=== PATIENT | female | born 1985 | race Caucasian/White ===

== ENCOUNTER 2016-06-24 05:00 | Inpatient (IN) | payer MEDICAID ==
[2016-06-24] MEDS ORDERED: Oxytocin 10 Units/1 ML SDV ONE (05:03)
[2016-06-24] MEDS ORDERED: Oxytocin 10 Units/1 ML SDV IM PRN (05:15)
[2016-06-24] MEDS ORDERED: Sodium Chloride 0.9% 10 ML Syringe FLUSH PRN (05:40)
[2016-06-24] MEDS ORDERED: Ibuprofen 600 MG Tab PO PRN (05:43)
[2016-06-24] MEDS ORDERED: Lanolin 100% Cream 40 GM Tube TOP PRN (05:43)
[2016-06-24] MEDS ORDERED: Acetaminophen 325 MG Tab PO PRN (05:43)
[2016-06-24] MEDS ORDERED: Acetaminophen/HYDROcodone 325-5 MG Tab PO PRN (05:43)
[2016-06-24] MEDS ORDERED: Docusate Sodium 100 MG Cap PO PRN (05:43)
--- NOTE | 2016-06-24 06:02 | PCM.LDHP ---
L&D History of Present Illness - General Date of Service: 06/24/16 Admit Problem/Dx: Patient Status Order with Admit Dx/Problem 06/24/16 05:03 Patient Status [ADT] Routine 06/24/16 05:04 Patient Status [ADT] Routine Admission Diagnosis/Problem Admission Diagnosis/Problem Source of Information: Patient History Limitations: Reports: No limitations - History of Present Illness Associated Symptoms: Reports: N - Related Data Allergies/Adverse Reactions: Allergies Allergy/AdvReac Type Severity Reaction Status Date / Time No Known Allergies Allergy Verified 08/27/13 07:46 H&P Review of Systems - Review of Systems: Review Of Systems: See Below General: Reports: no symptoms HEENT: Reports: no symptoms Pulmonary: Reports: No Symptoms Cardiovascular: Reports: no symptoms Gastrointestinal: Reports: No symptoms Genitourinary: Reports: no symptoms Musculoskeletal: Reports: no symptoms Skin: Reports: no symptoms Psychiatric: Reports: no symptoms Neurological: Reports: No Symptoms Hematologic/Lymphatic: Reports: no symptoms Immunologic: Reports: no symptoms L&D Exam - Exam Exam: See Below - OB Specific movement: active heart tones: present Presentation: Vertex - Exam General: alert, oriented HEENT: PERRLA, Conjunctiva clear, EACs clear, EOMI, Hearing intact, Mucosa moist & pink, Nares patent, Normal nasal septum, Posterior pharynx clear, Pupils equal, Pupils reactive, TMs clear Neck: supple, trachea midline Lungs: Clear to auscultation, Normal respiratory effort Cardiovascular: regular rate, regular rhythm Abdomen: normal bowel sounds, soft Rectal Exam: Normal exam, Normal rectal tone Genitourinary: Normal external exam Back Exam: normal inspection, full range of motion Extremities: normal inspection Skin: warm, dry, intact Neurological: cranial nerves intact, reflexes equal bilateral Psychiatric: alert, normal affect, normal mood - Patient Data Lab Results last 24 hrs: Laboratory Results - last 24 hr 06/24/16 Range/Units 05:15 WBC 6.2 (4.5-11.0) K/uL RBC 4.29 (3.30-5.50) M/uL Hgb 11.8 L (12.0-15.0) g/dL Hct 35.9 L (36.0-48.0) % MCV 84 (80-98) fL MCH 28 (27-31) pg MCHC 33 (32-36) % Plt Count 143 L (150-400) K/uL Neut % (Auto) 73 H (36-66) % Lymph % (Auto) 20 L (24-44) % [place] % (Auto) 6 (2-6) % Eos % (Auto) 1 L (2-4) % Baso % (Auto) 0 (0-1) % Result Diagrams: 06/24/16 05:15 - Problem List (1) Precipitous delivery SNOMED Code(s): 164076809 ICD Code: O62.3 - PRECIPITATE LABOR Status: Acute Current Visit: Yes (2) Intends to breastfeed SNOMED Code(s): 420157255 ICD Code: [id number] - Status: Acute Current Visit: Yes (3) Thick meconium stained amniotic fluid SNOMED Code(s): 262438218 ICD Code: P96.83 - MECONIUM STAINING Status: Acute Current Visit: Yes (4) Normal vaginal delivery SNOMED Code(s): 24718517 ICD Code: O80 - ENCOUNTER FOR FULL-TERM UNCOMPLICATED DELIVERY Status: Acute Current Visit: Yes (5) SNOMED Code(s): 16557058 ICD Code: Z33.1 - STATE, INCIDENTAL Status: Acute Current Visit : Yes Qualifiers: Weeks of gestation: 40 weeks Qualified Code(s): Z3A.40 - 40 weeks gestation of Problem List Initiated/Reviewed/Updated: Yes Orders Last 24hrs: Active Orders 24 hr Category Date Time Status Patient Status [ADT] Routine ADT 06/24/16 05:03 Active Patient Status [ADT] Routine ADT 06/24/16 05:04 Active Communication Order [RC] ASDIRECTED Care 06/24/16 05:40 Active Communication Order [RC] ROUTINE Care 06/24/16 05:43 Active Heart Tones [RC] PER UNIT ROUTINE Care 06/24/16 05:40 Active May Shower [RC] ASDIRECTED Care 06/24/16 05:43 Active Notify Provider Vital Signs [RC] PRN Care 06/24/16 05:03 Active Notify Provider [RC] PRN Care 06/24/16 05:40 Active Up ad Deborah [RC] ASDIRECTED Care 06/24/16 05:43 Active Vital Signs [RC] PER UNIT ROUTINE Care 06/24/16 05:40 Active Vital Signs [RC] PFP Care 06/24/16 05:43 Active Regular Diet [DIET] Diet 06/24/16 Breakfast Active CBC WITH AUTO DIFF [HEME] Routine Lab 06/25/16 06:00 Ordered Acetaminophen [Tylenol] Med 06/24/16 05:43 Ordered 650 mg PO Q4H PRN Acetaminophen/HYDROcodone [[place] 325-5 MG] Med 06/24/16 05:43 Ordered 1 - 2 tab PO Q4H PRN Docusate Sodium [Colace] Med 06/24/16 05:43 Ordered 100 mg PO BID PRN Ibuprofen [Motrin] Med 06/24/16 05:43 Ordered 600 mg PO Q6H PRN Lanolin [Lansinoh HPA] Med 06/24/16 05:43 Ordered 1 gm TOP ASDIRECTED PRN Oxytocin [Pitocin] Med 06/24/16 05:15 Ordered 10 unit IM ONETIME PRN Sodium Chloride 0.9% [Saline Flush] Med 06/24/16 05:40 Active 10 ml FLUSH ASDIRECTED PRN Assess Lochia [WOMSER] Per Unit Routine Oth 06/24/16 05:43 Ordered Assess Uterine Involution [WOMSER] Per Unit Routine Oth 06/24/16 05:43 Ordered Ice Therapy [OM.PC] Per Unit Routine Oth 06/24/16 05:44 Ordered Perineal Care [OM.PC] Per Unit Routine Oth 06/24/16 05:44 Ordered Saline Lock Insert [OM.PC] Routine Oth 06/24/16 05:40 Ordered Resuscitation Status Routine Resus Stat 06/24/16 05:43 Ordered Medication Orders Acetaminophen (Tylenol) 650 mg PO Q4H PRN PRN Reason: mild pain or fever Hydrocodone Bitart/Acetaminophen ([place] 325-5 Mg) 1 - 2 tab PO Q4H PRN PRN Reason: Pain (moderate 4-6) Docusate Sodium (Colace) 100 mg PO BID PRN PRN Reason: Constipation Emollient Ointment (Lansinoh Hpa) 1 gm TOP ASDIRECTED PRN PRN Reason: Sore Nipples Ibuprofen (Motrin) 600 mg PO Q6H PRN PRN Reason: mild pain or fever Oxytocin (Pitocin) 10 unit IM ONETIME PRN PRN Reason: excessive vaginal bleeding Sodium Chloride (Saline Flush) 10 ml FLUSH ASDIRECTED PRN PRN Reason: Keep Vein Open Assessment/Plan Comment:: 06/24/2016 31 yo began active labor around 0300. They began to drive in from [place] to the hospital when the baby began to come quickly. They phoned for an ambulance and delivered in the vehicle by cost clerk at [phone]. Network Support Manager state there was a nuchal cord times one loose and easy to reduce. Network Support Manager states infant cried spontaneously and was placed skin to skin with mother and cord was double clamped and cut by cost clerk. Once both were stable ambulance brought infant and mother into hospital. CNM greeted them at door.
--- NOTE | 2016-06-24 06:14 | PCM.DEL ---
L & D Note - General Info Date of Service: 06/24/16 Mother's Due Date: 06/23/16 - Delivery Note Labor: spontaneous Delivery Method: Spontaneous Vaginal Delivery Delivery Mode: Spontaneous Presentation: Vertex Nuchal cord: present (times one and reduced) Anesthesia Type: None Amniotic Fluid Description: Meconium stained Episiotomy Type: None Laceration: none Placenta: intact, spontaneous, meconium stained Cord: 3 vessels Resuscitation needed: No : bulb syringe, stimulated, warmed, blanket used, warmer used Second Stage Interventions: Reports: Other (see below) (precipitous) Delivery Comments (Free Text/Narrative):: 06/24/2016 31 yo began active labor around 0300, she states she SROM at 0400 then labor progressed quickly, she states fluid was brown in color. They began to drive in from [place] to the hospital when the baby began to come quickly. They phoned for an ambulance and delivered in the vehicle by accounts payable accountant at [phone] normal spontaneous vaginal delivery. Professor Of Sociology state there was a nuchal cord times one loose and easy to reduce. Professor Of Sociology states infant cried spontaneously and was placed skin to skin with mother and cord was double clamped and cut by accounts payable accountant. Infant bulb suctioned-APGARS 9/10/10, weight 7lbs 3oz, length-20inches, Once both were stable ambulance brought infant and mother into hospital. CNM greeted them at door. Patient then assisted on to the labor and delivery bed. Placenta spontaneously removed over an intact perineum, meconium standed. 3 vessel cord. Moderate sized blood clot after placenta. No lacerations noted of perineum, vagina, cervix, or rectum. EBL- 100. Labs- O positive, Hgb 11.8, Rubella Immune, RPR nonreactive, HIV negative, Hep B negative, Mother and infant now stable in labor and delivery room - General Info Date of Service: 06/24/16 Admission Dx/Problem (Free Text): Patient Status Order with Admit Dx/Problem 06/24/16 05:03 Patient Status [ADT] Routine 06/24/16 05:04 Patient Status [ADT] Routine Admission Diagnosis/Problem Admission Diagnosis/Problem Functional Status: Reports: pain controlled - Review of Systems General: Reports: No Symptoms HEENT: Reports: no symptoms Pulmonary: Reports: no symptoms Cardiovascular: Reports: No Symptoms Gastrointestinal: Reports: No symptoms Genitourinary: Reports: no symptoms Musculoskeletal: Reports: no symptoms Skin: Reports: no symptoms Neurological: Reports: No Symptoms Psychiatric: Reports: no symptoms - Patient Data Lab Results last 24 hrs: Laboratory Results - last 24 hr 06/24/16 Range/Units 05:15 WBC 6.2 (4.5-11.0) K/uL RBC 4.29 (3.30-5.50) M/uL Hgb 11.8 L (12.0-15.0) g/dL Hct 35.9 L (36.0-48.0) % MCV 84 (80-98) fL MCH 28 (27-31) pg MCHC 33 (32-36) % Plt Count 143 L (150-400) K/uL Neut % (Auto) 73 H (36-66) % Lymph % (Auto) 20 L (24-44) % [place] % (Auto) 6 (2-6) % Eos % (Auto) 1 L (2-4) % Baso % (Auto) 0 (0-1) % Med Orders - Current: Current Medications Acetaminophen (Tylenol) 650 mg PO Q4H PRN PRN Reason: mild pain or fever Hydrocodone Bitart/Acetaminophen ([place] 325-5 Mg) 1 - 2 tab PO Q4H PRN PRN Reason: Pain (moderate 4-6) Docusate Sodium (Colace) 100 mg PO BID PRN PRN Reason: Constipation Emollient Ointment (Lansinoh Hpa) 1 gm TOP ASDIRECTED PRN PRN Reason: Sore Nipples Ibuprofen (Motrin) 600 mg PO Q6H PRN PRN Reason: mild pain or fever Oxytocin (Pitocin) 10 unit IM ONETIME PRN PRN Reason: excessive vaginal bleeding Sodium Chloride (Saline Flush) 10 ml FLUSH ASDIRECTED PRN PRN Reason: Keep Vein Open - Exam General: alert, oriented HEENT: Pupils equal, Pupils reactive, EOMI, Mucous membr. moist/pink Neck: supple Lungs: Clear to auscultation, Normal respiratory effort Cardiovascular: Regular Rate, Regular Rhythm Abdomen: bowel sounds present, soft, no tenderness, no distension (Female) Exam: Normal external exam, Normal speculum exam, Normal bimanual exam, Enlarged uterus, Vaginal bleeding Back Exam: normal inspection, full range of motion Extremities: no edema Skin: warm, dry, intact Wound/Incisions: healing well Neurological: no new focal deficit Psy/Mental Status: alert, normal affect, normal mood - Problem List & Annotations (1) Precipitous delivery SNOMED Code(s): 886672921 Code(s): O62.3 - PRECIPITATE LABOR Status: Acute Current Visit: Yes (2) Intends to breastfeed SNOMED Code(s): 777876433 Code(s): GIQ9849 - Status: Acute Current Visit: Yes (3) Thick meconium stained amniotic fluid SNOMED Code(s): 051224013 Code(s): P96.83 - MECONIUM STAINING Status: Acute Current Visit: Yes (4) Normal vaginal delivery SNOMED Code(s): 66224876 Code(s): O80 - ENCOUNTER FOR FULL-TERM UNCOMPLICATED DELIVERY Status: Acute Current Visit: Yes (5) SNOMED Code(s): 11875415 Code(s): Z33.1 - STATE, INCIDENTAL Status: Acute Current Visit: Yes Qualifiers: Weeks of gestation: 40 weeks Qualified Code(s): Z3A.40 - 40 weeks gestation of - Problem List Review Problem List Initiated/Reviewed/Updated: Yes - My Orders Last 24 Hours: My Active Orders 06/24/16 05:03 Patient Status [ADT] Routine Notify Provider Vital Signs [RC] PRN 06/24/16 05:04 Patient Status [ADT] Routine 06/24/16 05:15 Oxytocin [Pitocin] 10 unit IM ONETIME PRN 06/24/16 05:40 Communication Order [RC] ASDIRECTED Heart Tones [RC] PER UNIT ROUTINE Notify Provider [RC] PRN Vital Signs [RC] PER UNIT ROUTINE Sodium Chloride 0.9% [Saline Flush] 10 ml FLUSH ASDIRECTED PRN Saline Lock Insert [OM.PC] Routine 06/24/16 05:43 Communication Order [RC] ROUTINE May Shower [RC] ASDIRECTED Up ad Deborah [RC] ASDIRECTED Vital Signs [RC] PFP Acetaminophen [Tylenol] 650 mg PO Q4H PRN Acetaminophen/HYDROcodone [[place] 325-5 MG] 1 - 2 tab PO Q4H PRN Docusate Sodium [Colace] 100 mg PO BID PRN Ibuprofen [Motrin] 600 mg PO Q6H PRN Lanolin [Lansinoh HPA] 1 gm TOP ASDIRECTED PRN Assess Lochia [WOMSER] Per Unit Routine Assess Uterine Involution [WOMSER] Per Unit Routine Resuscitation Status Routine 06/24/16 05:44 Ice Therapy [OM.PC] Per Unit Routine Perineal Care [OM.PC] Per Unit Routine 06/24/16 Breakfast Regular Diet [DIET] 06/25/16 06:00 CBC WITH AUTO DIFF [HEME] Routine - Assessment Assessment:: 06/24/2016 Precipitous Delivery Meconium stained fluid Delivery outside of hospital setting O positive, Rubella Immune, Hep B negative, HIV negative, Hgb 11.8 Fundus firm, moderate amount of bleeding Intact perineum - Plan Plan:: 06/24/2016 31 yo began active labor around 0300. They began to drive in from [place] to the hospital when the baby began to come quickly. They phoned for an ambulance and delivered in the vehicle by accounts payable accountant at [phone]. Professor Of Sociology state there was a nuchal cord times one loose and easy to reduce. Professor Of Sociology states infant cried spontaneously and was placed skin to skin with mother and cord was double clamped and cut by accounts payable accountant. Once both were stable ambulance brought infant and mother into hospital. CNM greeted them at door. Plan Routine Cares Support and encourage Monitor Fundus and bleeding Pain medication per patients request Plan for discharge in 24-48 hours
--- NOTE | 2016-06-25 08:24 | PCM.PNPP ---
- General Info Date of Service: 06/25/16 (PPD 1) Admission Dx/Problem (Free Text): Patient Status Order with Admit Dx/Problem 06/24/16 05:03 Patient Status [ADT] Routine 06/24/16 05:04 Patient Status [ADT] Routine Admission Diagnosis/Problem Admission Diagnosis/Problem Functional Status: Reports: pain controlled - Review of Systems General: Reports: No Symptoms HEENT: Reports: no symptoms Pulmonary: Reports: no symptoms Cardiovascular: Reports: No Symptoms Gastrointestinal: Reports: No symptoms Genitourinary: Reports: no symptoms Musculoskeletal: Reports: no symptoms Skin: Reports: no symptoms Neurological: Reports: No Symptoms Psychiatric: Reports: no symptoms - General Info Date of Service: 06/25/16 - Patient Data Vital Signs - most recent: Last Vital Signs Temp 98.8 F 06/25/16 03:00 Pulse 63 06/25/16 03:00 Resp 16 06/25/16 03:00 BP 102/66 06/25/16 03:00 Pulse Ox 98 06/25/16 03:00 Weight - most recent: 145 lb Lab Results - last 24 hrs: Laboratory Results - last 24 hr 06/25/16 Range/Units 04:45 WBC 6.7 (4.5-11.0) K/uL RBC 4.21 (3.30-5.50) M/uL Hgb 11.4 L (12.0-15.0) g/dL Hct 35.3 L (36.0-48.0) % MCV 84 (80-98) fL MCH 27 (27-31) pg MCHC 32 (32-36) % Plt Count 150 (150-400) K/uL Neut % (Auto) 64 (36-66) % Lymph % (Auto) 28 (24-44) % [place] % (Auto) 7 H (2-6) % Eos % (Auto) 2 (2-4) % Baso % (Auto) 0 (0-1) % Med Orders - Current: Current Medications Acetaminophen (Tylenol) 650 mg PO Q4H PRN PRN Reason: mild pain or fever Hydrocodone Bitart/Acetaminophen ([place] 325-5 Mg) 1 - 2 tab PO Q4H PRN PRN Reason: Pain (moderate 4-6) Docusate Sodium (Colace) 100 mg PO BID PRN PRN Reason: Constipation Emollient Ointment (Lansinoh Hpa) 1 gm TOP ASDIRECTED PRN PRN Reason: Sore Nipples Ibuprofen (Motrin) 600 mg PO Q6H PRN PRN Reason: mild pain or fever Oxytocin (Pitocin) 10 unit IM ONETIME PRN PRN Reason: excessive vaginal bleeding Last Admin: 06/24/16 05:25 Dose: 10 unit Sodium Chloride (Saline Flush) 10 ml FLUSH ASDIRECTED PRN PRN Reason: Keep Vein Open Discontinued Medications Oxytocin (Pitocin) Confirm Administered Dose 10 unit .ROUTE .STK-MED ONE Stop: 06/24/16 05:04 Last Admin: 06/24/16 12:33 Dose: Not Given - Interaction Infant Disposition, : in Room with Family Infant Interaction: Holding Infant Infant Feeding: Breastfed Infant; Nursed Well Support Person: - Recovery Exam Fundal Tone: Firm Fundal Level: At Umbilicus Fundal Placement: Midline Lochia Amount: Small Lochia Color: Rubra/Red Perineum Description: Intact, Minimal Bruising/Swelling Episiotomy/Laceration: None Bladder Status: Voiding Urinary Elimination: Voided - Exam General: alert, oriented HEENT: Pupils equal Neck: supple Lungs: Clear to auscultation, Normal respiratory effort Cardiovascular: Regular Rate, Regular Rhythm Abdomen: bowel sounds present, soft, no tenderness, no distension Extremities: no edema Skin: warm, dry, intact Wound/Incisions: healing well Neurological: no new focal deficit Psy/Mental Status: alert, normal affect, normal mood - Problem List & Annotations (1) Intends to breastfeed SNOMED Code(s): 643917045 Code(s): EWD2470 - Status: Acute Current Visit: Yes (2) Normal vaginal delivery SNOMED Code(s): 43059603 Code(s): O80 - ENCOUNTER FOR FULL-TERM UNCOMPLICATED DELIVERY Status: Acute Current Visit: Yes (3) Precipitous delivery SNOMED Code(s): 860259768 Code(s): O62.3 - PRECIPITATE LABOR Status: Acute Current Visit: Yes (4) SNOMED Code(s): 39877610 Code(s): Z33.1 - STATE, INCIDENTAL Status: Acute Current Visit: Yes Qualifiers: Weeks of gestation: 40 weeks Qualified Code(s): Z3A.40 - 40 weeks gestation of (5) Thick meconium stained amniotic fluid SNOMED Code(s): 765074929 Code(s): P96.83 - MECONIUM STAINING Status: Acute Current Visit: Yes - Problem List Review Problem List Initiated/Reviewed/Updated: Yes - Assessment Assessment:: 06/24/2016 Precipitous Delivery Meconium stained fluid Delivery outside of hospital setting O positive, Rubella Immune, Hep B negative, HIV negative, Hgb 11.8 Fundus firm, moderate amount of bleeding Intact perineum 06/25/16 Doing well, without problems Up and about HGB 11.4 Bleeding light, feels well Baby's ABO O pos - Plan Plan:: 06/24/2016 31 yo began active labor around 0300. They began to drive in from [place] to the hospital when the baby began to come quickly. They phoned for an ambulance and delivered in the vehicle by mussel opener at [phone]. Railroad Auditor state there was a nuchal cord times one loose and easy to reduce. Railroad Auditor states infant cried spontaneously and was placed skin to skin with mother and cord was double clamped and cut by mussel opener. Once both were stable ambulance brought and mother into hospital. CNM greeted them at door. Plan Routine Cares Support and encourage Monitor Fundus and bleeding Pain medication per patients request Plan for discharge in 24-48 hours 06/24/16 Home tomorrow Support Needs to sign refusal for PKU testing
--- NOTE | 2016-06-26 07:14 | PCM.PNPP ---
- General Info Date of Service: 06/26/16 (PPD 2) Admission Dx/Problem (Free Text): Patient Status Order with Admit Dx/Problem 06/24/16 05:03 Patient Status [ADT] Routine 06/24/16 05:04 Patient Status [ADT] Routine Admission Diagnosis/Problem Admission Diagnosis/Problem Functional Status: Reports: pain controlled - Review of Systems General: Reports: No Symptoms HEENT: Reports: no symptoms Pulmonary: Reports: no symptoms Cardiovascular: Reports: No Symptoms Gastrointestinal: Reports: No symptoms Genitourinary: Reports: no symptoms Musculoskeletal: Reports: no symptoms Skin: Reports: no symptoms Neurological: Reports: No Symptoms Psychiatric: Reports: no symptoms - General Info Date of Service: 06/26/16 - Patient Data Vital Signs - most recent: Last Vital Signs Temp 98.8 F 06/26/16 02:30 Pulse 73 06/26/16 02:30 Resp 16 06/26/16 02:30 BP 87/70 L 06/26/16 02:30 Pulse Ox 98 06/26/16 02:30 Weight - most recent: 145 lb Med Orders - Current: Current Medications Acetaminophen (Tylenol) 650 mg PO Q4H PRN PRN Reason: mild pain or fever Hydrocodone Bitart/Acetaminophen ([place] 325-5 Mg) 1 - 2 tab PO Q4H PRN PRN Reason: Pain (moderate 4-6) Docusate Sodium (Colace) 100 mg PO BID PRN PRN Reason: Constipation Emollient Ointment (Lansinoh Hpa) 1 gm TOP ASDIRECTED PRN PRN Reason: Sore Nipples Ibuprofen (Motrin) 600 mg PO Q6H PRN PRN Reason: mild pain or fever Oxytocin (Pitocin) 10 unit IM ONETIME PRN PRN Reason: excessive vaginal bleeding Last Admin: 06/24/16 05:25 Dose: 10 unit Sodium Chloride (Saline Flush) 10 ml FLUSH ASDIRECTED PRN PRN Reason: Keep Vein Open Discontinued Medications Oxytocin (Pitocin) Confirm Administered Dose 10 unit .ROUTE .STK-MED ONE Stop: 06/24/16 05:04 Last Admin: 06/24/16 12:33 Dose: Not Given - Interaction Disposition, : [place] in Room with Family Interaction: Holding Infant Infant Feeding: Breastfed ; Nursed Well Support Person: - Recovery Exam Fundal Tone: Firm Fundal Level: 2 Fingerbreadths Below Umbilicus Fundal Placement: Midline Lochia Amount: Small Lochia Color: Rubra/Red Perineum Description: Intact, Minimal Bruising/Swelling Episiotomy/Laceration: None Bladder Status: Voiding Urinary Elimination: Voided - Exam General: alert, oriented HEENT: Pupils equal Neck: supple Lungs: Clear to auscultation, Normal respiratory effort Cardiovascular: Regular Rate, Regular Rhythm Abdomen: bowel sounds present, soft, no tenderness, no distension Extremities: no edema Skin: warm, dry, intact Wound/Incisions: healing well Neurological: no new focal deficit Psy/Mental Status: alert, normal affect, normal mood - Problem List & Annotations (1) Intends to breastfeed SNOMED Code(s): 592380215 Code(s): XBV9915 - Status: Acute Current Visit: Yes (2) Normal vaginal delivery SNOMED Code(s): 67313234 Code(s): O80 - ENCOUNTER FOR FULL-TERM UNCOMPLICATED DELIVERY Status: Acute Current Visit: Yes (3) Precipitous delivery SNOMED Code(s): 062611100 Code(s): O62.3 - PRECIPITATE LABOR Status: Acute Current Visit: Yes (4) SNOMED Code(s): 79043937 Code(s): Z33.1 - STATE, INCIDENTAL Status: Acute Current Visit: Yes Qualifiers: Weeks of gestation: 40 weeks Qualified Code(s): Z3A.40 - 40 weeks gestation of (5) Thick meconium stained amniotic fluid SNOMED Code(s): 924186479 Code(s): P96.83 - MECONIUM STAINING Status: Acute Current Visit: Yes - Problem List Review Problem List Initiated/Reviewed/Updated: Yes - Assessment Assessment:: 06/24/2016 Precipitous Delivery Meconium stained fluid Delivery outside of hospital setting O positive, Rubella Immune, Hep B negative, HIV negative, Hgb 11.8 Fundus firm, moderate amount of bleeding Intact perineum 06/25/16 Doing well, without problems Up and about HGB 11.4 Bleeding light, feels well Baby's ABO O pos 06/26/16 Doing well, no problems. No fever without problems Ready to go home. - Plan Plan:: 06/24/2016 31 yo began active labor around 0300. They began to drive in from [place] to the hospital when the baby began to come quickly. They phoned for an ambulance and delivered in the vehicle by pants presser automatic at [phone]. Hospital Account Manager state there was a nuchal cord times one loose and easy to reduce. Hospital Account Manager states cried spontaneously and was placed skin to skin with mother and cord was double clamped and cut by pants presser automatic. Once both were stable ambulance brought infant and mother into hospital. CNM greeted them at door. Plan Routine Cares Support and encourage Monitor Fundus and bleeding Pain medication per patients request Plan for discharge in 24-48 hours 06/24/16 Home tomorrow Support Needs to sign refusal for PKU testing 06/26/16 Home today see me in 6 weeks
[2016-06-26 09:10] VITALS: BP 98/57
== END 2016-06-26 13:30 | disposition home or self-care (01) | DRG 767 ==
LOC: JP.MS 05:00
PROVIDERS: ADMIT Advanced Practice Midwife; ATTEND Advanced Practice Midwife
PROC: 10D17ZZ Extraction of Products of Conception, Retained, Via Natural or Artificial Opening (ICD-10-PCS; principal; 2016-06-24)
DX: Z39.0 Encounter for care and examination of mother immediately after delivery (principal); Z37.0 Single live birth; O62.3 Precipitate labor; O77.0 Labor and delivery complicated by meconium in amniotic fluid; Z3A.40 40 weeks gestation of pregnancy; O73.0 Retained placenta without hemorrhage
CPT/HCPCS: 36415; 59414; 80305; 81001; 85025; J2590